=== PATIENT | female | born 1950 | race Caucasian/White ===

== ENCOUNTER 2017-10-20 12:38 | Day surgery (SDC) | payer OTHER ==
[~2017-10-20 12:38] MED LIST: ACIP20TA19
[2017-10-20 13:35] VITALS: BP 124/93; PULSE 100; RESP 16; TEMP 98.6; O2SAT 90
[2017-10-20 14:20] VITALS: BP 151/78; PULSE 72; RESP 20; TEMP 97.6; O2SAT 98
[2017-10-20] MEDS ORDERED: LIDOCAINE HCL 1% 20 ML VIAL ONE (14:25)
--- NOTE | 2017-10-20 14:28 | RADRPT ---
EXAM DATE/TIME: 10/20/2017 13:40 [place] COMPARISON: No previous studies available for comparison. INDICATIONS : Right thyroid nodule. MEDICAL HISTORY : Gastroesophageal reflux disease. SURGICAL HISTORY : Tonsillectomy. ENCOUNTER: Initial ACUITY: 1 month PAIN SCORE: 0/10 LOCATION: Right neck ORGAN: Right thyroid lobe SPECIMENS: Three fine needle aspirate(s) submitted for pathologic evaluation. DEVICE: 22 gauge needle Post procedure scanning reveals no hematoma or other complication. The possibility does exist that the tissue obtained will be non-diagnostic. If the sample is non-dany gnostic a repeat biopsy or surgical biopsy may need to be performed. TECHNIQUE: 1. Ultrasound guidance for needle biopsy. 2. Needle biopsy. The risks, benefits and alternatives to the procedure were explained and verbal and written consent w as obtained. The site was prepped in sterile fashion. Full sterile technique was used, including ca p, mask, sterile gloves and gown and a large sterile sheet. Hand hygiene and 2% chlorhexidine and/or betadine/alcohol prep was utilized per protocol for cutaneous antisepsis. The skin and subcutaneous tissues were infiltrated with local anesthetic solution. Sterile gel and sterile probe cover were u tilized for ultrasound guidance. With the patient on the ultrasound table, images were obtained. A needle was advanced into the identified target and the number of specimens as above obtained and kwon bmitted for pathologic evaluation. The patient tolerated the procedure well and left the ultrasound suite in stable condition. CONCLUSION: Uncomplicated ultrasound guided needle biopsy of the dominant nodule right lobe with pseudocapsule. Callum De La Paz MD FACR on October 20, 2017 at 14:26 Board Certified Radiologist. This report was verified electronically.
[2017-10-20 14:35] VITALS: BP 137/76; PULSE 70; RESP 20; O2SAT 100
== END 2017-10-20 14:40 | disposition home or self-care (01) ==
LOC: HRAD 12:38 → HRIP 12:39 → HRAD 14:40
PROVIDERS: ATTEND Internal Medicine
DX: E04.1 Nontoxic single thyroid nodule (principal); K21.9 Gastro-esophageal reflux disease without esophagitis
CPT/HCPCS: 10022; 76942; 88172; 88173